=== PATIENT | male | born 1965 | race Caucasian/White ===

== ENCOUNTER 2016-10-04 16:51 | Emergency (ER) | payer OTHER ==
[2016-10-04] MEDS ORDERED: DEXAMETHASONE 10 MG/ML VIAL PO STA (17:08)
[2016-10-04] MEDS ORDERED: IPRATROPIUM/ALBUTEROL 3 ML NEB INH STA (17:08)
[2016-10-04] MEDS ORDERED: DEXAMETHASONE 10 MG/ML VIAL ONE (17:11)
[2016-10-04] MEDS ORDERED: CHERRY SYRUP 10 ML UDC PO ONE (17:11)
[2016-10-04] MEDS ORDERED: IPRATROPIUM/ALBUTEROL 3 ML NEB INH ONE (17:14)
== END 2016-10-04 17:34 | disposition home or self-care (01) ==
DX: H66.001 Acute suppurative otitis media without spontaneous rupture of ear drum, right ear (principal); J06.9 Acute upper respiratory infection, unspecified; F17.200 Nicotine dependence, unspecified, uncomplicated
CPT/HCPCS: 94640; 99283; A9270; J7620

== ENCOUNTER 2018-08-03 16:48 | Emergency (ER) | payer OTHER ==
[2018-08-03] MEDS ORDERED: IPRATROPIUM/ALBUTEROL 3 ML NEB INH STA (18:09)
[2018-08-03] MEDS ORDERED: DEXAMETHASONE 10 MG/ML VIAL PO STA (18:09)
[2018-08-03] MEDS ORDERED: CHERRY SYRUP 10 ML UDC PO ONE (18:18)
[2018-08-03 19:25] VITALS: BP 101/53
--- NOTE | 2018-08-03 19:28 | XRAY Report ---
Reason: cough and dyspnea Procedure Date: 08/03/2018 Accession Number: [id number] / [id number] Procedure: XR - Chest 2 View X-Ray CPT Code: 57442 FULL RESULT: EXAM: CHEST RADIOGRAPHY EXAM DATE: 08/03/2018 07:10 PM. CLINICAL HISTORY: Cough and dyspnea. COMPARISON: CHEST 2 VIEW PA/LAT 07/19/2014 10:03 AM. TECHNIQUE: 2 views. FINDINGS: Lungs/Pleura: Bronchial wall thickening noted. Retrocardiac densities are present. No effusions or pneumothorax. Lungs are hyperinflated. Mediastinum: Stable cardiomediastinal silhouette. Other: None. IMPRESSION: 1. Retrocardiac opacities could represent developing infiltrates. Superimposed bronchial wall thickening most compatible with bronchitis or reactive airways disease. 2. No effusions or pneumothorax. RADIA
--- NOTE | 2018-08-03 19:40 | ED Physician Documentation ---
PD HPI DYSPNEA - Stated complaint Stated Complaint: COUGHING/FEVER - Chief complaint Chief Complaint: Resp - History obtained from History obtained from: Patient - History of Present Illness Timing - onset: How many days ago (4) Timing - duration: Days (4) Timing - details: Still present Worsened by: Coughing Associated symptoms: Fever, Cough - Additional information Additional information: The patient is a 53-year-old male who presents with cough and fever of 4 days' duration. His cough is productive of sputum, and he reports dyspnea and myalgias. He denies chest pain, nausea or vomiting. He denies sore throat. He has taken Tylenol and NyQuil without relief. His has been sick with similar symptoms, and was diagnosed with pneumonia. Review of Systems Constitutional: reports: Fever, Myalgias Eyes: denies: Irritation Ears: denies: Ear pain Nose: denies: Congestion Throat: denies: Sore throat Cardiac: denies: Chest pain / pressure Respiratory: reports: Dyspnea, Cough GI: denies: Abdominal Pain, Nausea, Vomiting : denies: Dysuria Skin: denies: Rash Musculoskeletal: denies: Extremity pain, Extremity swelling Neurologic: reports: Headache (mild) PD PAST MEDICAL HISTORY - Past Medical History Past Medical History: No Cardiovascular: None Respiratory: None Neuro: None Endocrine/Autoimmune: None GI: None : None HEENT: None Psych: None Musculoskeletal: None Derm: None - Past Surgical History Past Surgical History: Yes General: Other - Present Medications Home Medications: Ambulatory Orders Medication Instructions Recorded Confirmed Albuterol Sulf [Ventolin Hfa 1 - 2 puffs INH Q4HR PRN #1 inhaler 08/03/18 Inhaler] Azithromycin [Zithromax] 250 mg PO DAILY #6 tablet 08/03/18 Benzonatate [Tessalon Perle] 100 - 200 mg PO TID PRN #30 capsule 08/03/18 - Allergies Allergies/Adverse Reactions: Allergies Allergy/AdvReac Type Severity Reaction Status Date / Time No Known Drug Allergies Allergy Verified 08/03/18 16:55 - Social History Does the pt smoke?: Yes Smoking Status: Current every day smoker Does the pt drink ETOH?: Yes Does the pt have substance abuse?: No - Immunizations Immunizations are current?: Yes - POLST Patient has POLST: No PD ED PE NORMAL - Vitals Vital signs reviewed: Yes (Diastolic hypertension initially.) - General General: Alert and oriented X 3, Well developed/nourished - HEENT HEENT: Atraumatic, Ears normal, Pharynx benign - Neck Neck: Supple, no meningeal sign, No adenopathy, No JVD - Cardiac Cardiac: RRR, No murmur - Respiratory Respiratory: Other (Diffuse expiratory wheezing.) - Abdomen Abdomen: Soft, Non tender - Back Back: No CVA TTP - Derm Derm: No rash - Extremities Extremities: No edema, No calf tenderness / cord - Neuro Neuro: Alert and oriented X 3, No motor deficit, Normal speech Results - Vitals Vitals: Oxygen O2 Source Room air - Rads (name of study) CXR Radiology: Prelim report reviewed, EMP read contemporaneously, See rad report (1) Retrocardiac opacities could represent developing infiltrates. Superimposed bronchial wall thickening most compatible with bronchitis or reactive airways disease. 2) No effusions or pneumothorax.) PD MEDICAL DECISION MAKING - ED course Complexity details: reviewed results, re-evaluated patient, considered differential, d/w patient, d/w family ED course: The patient's presentation is consistent with retrocardiac pneumonia, which is seen on chest x-ray, which reveals retrocardiac opacities. It also reveals bronchial wall thickening, consistent with bronchitis or early reactive airways disease. Treatment in the emergency department included administration of DuoNeb nebulizer and dexamethasone 10 mg orally. His air movement improved with the above treatment, and he felt subjectively improved. He is being discharged with prescriptions for albuterol inhaler, Zithromax, and Tessalon. I discussed with him and his family the expected course of illness, antibiotic treatment and outpatient follow-up, as well as potentially worrisome signs or symptoms that should prompt reevaluation in the emergency department. Departure - Departure Disposition: 01 Home, Self Care Clinical Impression: Acute asthmatic bronchitis Pneumonia Qualifiers: Pneumonia type: due to unspecified organism Laterality: left Lung location: lower lobe of lung Qualified Code(s): J18.1 - Lobar pneumonia, unspecified organism Condition: Stable Instructions: ED Bronchitis Asthmatic, ED Pneumonia Adult Follow-Up: Betty Hinton MD [Primary Care Provider] - Prescriptions: Albuterol Sulf [Ventolin Hfa Inhaler] 1 - 2 puffs INH Q4HR PRN #1 inhaler PRN Reason: Shortness Of Air/Wheezing Azithromycin [Zithromax] 250 mg PO DAILY #6 tablet Benzonatate [Tessalon Perle] 100 - 200 mg PO TID PRN #30 capsule PRN Reason: Cough Comments: Take Zithromax daily as prescribed. Use albuterol inhaler as prescribed if needed for shortness of breath. You can use Tessalon as prescribed if needed for cough. You can use ibuprofen, up to 800 mg 3 times daily for its anti-inflammatory effect. Follow-up with your primary physician within 1-2 weeks. Call to schedule appointment. Return to the emergency department if you develop increasing difficulty breathing, or otherwise worsening symptoms. Discharge Date/Time: 08/03/18 19:50
== END 2018-08-03 19:50 | disposition home or self-care (01) ==
LOC: ED 16:48
DX: J45.909 Unspecified asthma, uncomplicated (principal); J18.1 Lobar pneumonia, unspecified organism; F17.200 Nicotine dependence, unspecified, uncomplicated
CPT/HCPCS: 71046; 94640; 99283; A9270

== ENCOUNTER 2021-06-01 10:51 | Outpatient (CLI) | payer OTHER ==
[2021-06-01 11:39] VITALS: BP 113/76
--- NOTE | 2021-06-01 11:39 | SLEEP CARE CONSULTATION ---
Information from patient questionnaire entered by Main Castro MA. I have reviewed and concur with the information entered by Main Castro MA. This document represents the service I personally performed and the decisions made by , Chantelle West ARNP. History of Present Illness Service Date and Time: 06/01/2021 1051 Reason for Visit: New patient Chief Complaint: reports: Snoring, Excessive daytime sleepiness, Observed pauses in breathing, Frequent awakenings at night Date of Onset: 13 YEARS Usual bedtime: 1100 PM Time it takes to fall asleep: 30 MINUTES Snores at night: Yes Observed to quit breathing while asleep: Yes Sleeps alone due to snoring: No Number of times waking at night: 3 Reasons for waking at night: reports: Snoring, Pain, Bathroom Toss, Turn, or Twitch while sleeping: Yes Recalls having dreams: Yes (sometimes) Usually gets out of bed at: 0730 Feels refreshed in the morning: Yes Morning headache: No Sleepy or fatigued during the day: Yes Ever fallen asleep while driving: No (only long distance) Takes day naps: No Dreams during day naps: No Prior sleep studies: No Year and Where: January 2021 with the [place] Type of Sleep Study: Home sleep study Additional HPI information: I had the pleasure of seeing YANA COHEN today regarding the possibility of him having a sleep disorder. His current complaints are excessive daytime sleepiness, observed pauses in breathing, frequent night awakenings and snoring. He had a HST with the [place] in January 2021. He was told he needed to have a PSG because of low oxygen saturations. His has told him his snoring is loud and that he stops breathing when he is sleeping. He wakes up feeling rested but he gets really tired and sleepy during the day. He denies drowsy driving. He denies morning headaches. 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 Patient is and lives in [place]. Have you smoked in the past 12 months: Yes (trying to quit) Cigarettes per day (20/pack): 20 Years of smokin Smoking Pack Years: 42.0 Alcohol use: Yes Alcohol amount and frequency: 1 -2 OCCASSIONALY Caffeine use: Yes Caffeine amount and frequency: 2 X DAILY Family History Family history of sleep disordered breathing: No Allergies and Home Medications Known drug allergies: No Drug allergies reviewed: Yes (NKDA) Home medication list reviewed: Yes (Wellbutrin for stopping smoking; flonase, cetirizine) Review of Systems Cardiovascular: reports: chest pain Respiratory: reports: shortness of breath, wheeze, sputum production, chronic cough Urinary: reports: frequency Neurological: reports: head trauma (kicked in head by horse when 7 yrs old) Ear/Nose/Throat: reports: nasal congestion, sinus problems, wisdom teeth removed. denies: injury to nose, tonsillectomy Endocrine: reports: sluggishness Musculoskeletal: reports: back pain Immunologic: reports: sneezing, itching. denies: allergies to food or environment Physical Exam Vital signs obtained and entered by: Shiraz CASTRO CMA AAHETAL Blood Pressure: 113/76 (left) Cuff size: wrist Heart Rate: 86 O2 Saturation: 96 (with mask,) Height: 6 ft 2 in Weight: 231 lb (per PT info with clothes) Weight change since last visit: Pt quiting smoking Novemmber 19, down to 1 - 2 cig per day. Body Mass Index: 29.6 BMI Classification: Overweight Neck circumference: 17 (inches) Mouth and throat: narrow oropharynx Soft palate: normal Hard palate: normal Uvula: normal Uvula visualization: 50% Mallampati Class II Tongue: normal in size Tonsils: small Neck: normal w/o lymphadenopathy or thyromegaly Heart: regular rate and rhythm Lungs: clear bilaterally Impression and Plan 1. Suspected Obstructive Sleep Apnea-Hypopnea Syndrome, as suggested by a history of loud and irregular snoring, observed cessation of breath while asleep, frequent awakening during the night, and excessive daytime sleepiness. Narrow oropharynx and obesity are common predisposing factors for obstructive sleep apnea-hypopnea syndrome. I recommend proceeding to polysomnography to confirm the diagnosis and to assess severity. If the patient has significant sleep disordered breathing, a manual CPAP titration study will also be performed to find the optimal treatment pressure. I informed the patient of what the sleep studies involve and after some discussion, obtained agreement to proceed. The pathophysiology of obstructive sleep apnea-hypopnea syndrome was discussed with the patient and health risks of cardiovascular and cerebrovascular disease if not treated. Risks of drowsy driving discussed in detail and patient advised to avoid long distance driving and to puller out at the first sign of drowsiness. Patient agreed to plan. * Schedule polysomnography. * Avoid long distance driving or driving when feeling sleepy. * Avoid alcohol, sedative and muscle relaxant around bedtime. * Attempt to lose weight. * Review instructions provided by trained office staff on how to prepare for the sleep study. * Return for follow-up after sleep study completed. Counseling Topics: Weight loss health impact Visit Type: In Office Time Spent with Patient (minutes): 25 Provider Statement: I spent 100% of the Face to Face Visit with the patient with greater than 50% spent counseling the patient and coordination of care.
== END 2021-06-01 10:52 | disposition home or self-care (01) ==
LOC: SC 10:51
PROVIDERS: ATTEND Nurse Practitioner Family
DX: R06.83 Snoring (principal); R06.81 Apnea, not elsewhere classified; G47.8 Other sleep disorders; E66.3 Overweight; Z68.29 Body mass index [BMI] 29.0-29.9, adult
CPT/HCPCS: 99202; 99212

== ENCOUNTER 2021-07-06 20:49 | Outpatient (CLI) | payer OTHER | END 2021-07-06 20:50 | disposition home or self-care (01) | LOC: SC 20:49 | PROVIDERS: ATTEND Nurse Practitioner Family | DX: R09.02 Hypoxemia (principal) | CPT/HCPCS: 95810 ==

== ENCOUNTER 2021-10-22 13:11 | Emergency (ER) | payer OTHER ==
[2021-10-22] MEDS ORDERED: IPRATROPIUM/ALBUTEROL 3 ML NEB INH STA (13:31)
--- NOTE | 2021-10-22 13:34 | ED Physician Documentation ---
PD HPI URI - Stated complaint Stated Complaint: CONGESTION/SOA - Chief complaint Chief Complaint: Resp - History obtained from History obtained from: Patient - Additional information Additional information: tested positive for COVID a few days ago. He got sick the day before yesterday with congestion, productive cough, shortness of breath and fevers. He is taken a few home test for COVID and they were all negative. He has a longstanding history of tobacco abuse, almost in remission. Only occasionally smokes now. No defined history of COPD or emphysema. Review of Systems Ten Systems: 10 systems reviewed and negative Constitutional: reports: Fever, Chills Nose: reports: Rhinorrhea / runny nose Throat: reports: Sore throat Cardiac: denies: Chest pain / pressure, Palpitations Respiratory: reports: Dyspnea, Cough PD PAST MEDICAL HISTORY - Past Medical History Cardiovascular: None Respiratory: None Neuro: None Endocrine/Autoimmune: None GI: None : None HEENT: None Psych: None Musculoskeletal: None Derm: None - Past Surgical History Past Surgical History: Yes General: Other - Present Medications Home Medications: Ambulatory Orders Medication Instructions Recorded Confirmed Albuterol Sulf [Ventolin Hfa 1 - 2 puffs INH Q4HR PRN #1 inhaler 08/03/18 Inhaler] Albuterol Sulf [Ventolin Hfa 1 - 2 puffs INH Q4HR PRN #1 inhaler 10/22/21 Inhaler] guaiFENesin/CODEINE [Robitussin AC] 5 - 10 ml PO Q6H PRN #120 ml 10/22/21 predniSONE [Deltasone] 20 mg PO [id number] #21 tab 10/22/21 - Allergies Allergies/Adverse Reactions: Allergies Allergy/AdvReac Type Severity Reaction Status Date / Time No Known Drug Allergies Allergy Verified 08/03/18 16:55 - Social History Does the pt smoke?: Yes Smoking Status: Current every day smoker Does the pt drink ETOH?: Yes Does the pt have substance abuse?: No - Immunizations Immunizations are current?: Yes - POLST Patient has POLST: No PD ED PE NORMAL - Vitals Vital signs reviewed: Yes - General General: Alert and oriented X 3, No acute distress, Other (He is not as tachypneic for me on my exam as the triage vitals would suggest.) - HEENT HEENT: PERRL, EOMI - Neck Neck: Supple, no meningeal sign, No bony TTP - Cardiac Cardiac: RRR, No murmur - Respiratory Respiratory: Other (Wheezy throughout with moderate air motion) - Abdomen Abdomen: Non tender - Back Back: No CVA TTP, No spinal TTP - Derm Derm: Normal color, Warm and dry - Extremities Extremities: No edema, No calf tenderness / cord - Neuro Neuro: Alert and oriented X 3, Normal speech Results - Vitals Vitals: Vital Signs - 24 hr 10/22/21 10/22/21 10/22/21 13:18 13:45 13:51 Temperature 37.7 C Heart Rate 110 H 120 H 104 H Respiratory 30 H 22 22 Rate Blood Pressure 160/97 H 141/103 H O2 Saturation 93 97 10/22/21 14:20 Temperature Heart Rate 105 H Respiratory 26 H Rate Blood Pressure 149/93 H O2 Saturation 92 Oxygen O2 Source Room air - EKG (time done) 1335 Rate: Rate (enter#) (115) Rhythm: Sinus tachycardia [place]: RAD Intervals: Normal [place] QRS: Low voltage Ischemia: Normal ST segments - Labs Labs: Laboratory Tests 10/22/21 10/22/21 10/22/21 13:30 13:30 13:30 WBC 8.0 RBC 5.32 Hgb 16.4 Hct 49.2 MCV 92.5 MCH 30.8 MCHC 33.3 RDW 12.9 Plt Count 219 MPV 9.6 Neut # (Auto) 6.5 Lymph # (Auto) 0.7 L Tift # (Auto) 0.7 Eos # (Auto) 0.0 Baso # (Auto) 0.1 Absolute Nucleated RBC 0.00 Nucleated RBC % 0.0 D-Dimer Sodium 135 Potassium 4.1 Chloride 99 L Carbon Dioxide 25 Anion Gap 11.0 BUN 13 Creatinine 1.3 H Estimated GFR (MDRD) 58 L Glucose 110 H Lactic Acid Calcium 8.8 Total Bilirubin 0.7 AST 20 ALT 33 Alkaline Phosphatase 107 B-Natriuretic Peptide 15 Total Protein 7.8 Albumin 4.4 Globulin 3.4 Albumin/Globulin Ratio 1.3 Procalcitonin Nasal Adenovirus (PCR) Nasal B. parapertussis DNA (PCR) Nasal Coronavir 229E PCR Nasal Coronavir HKU1 PCR Nasal Coronavir NL63 PCR Nasal Coronavir OC43 PCR Nasal Enterovir/Rhinovir PCR Nasal Influenza B PCR Nasal Influenza A PCR Nasal Parainfluen 1 PCR Nasal Parainfluen 2 PCR Nasal Parainfluen 3 PCR Nasal Parainfluen 4 PCR Nasal RSV (PCR) Nasal B.pertussis DNA PCR Nasal C.pneumoniae (PCR) Earnest Human Metapneumo PCR Nasal M.pneumoniae (PCR) Nasal SARS-CoV-2 (PCR) 10/22/21 10/22/21 10/22/21 13:30 13:30 13:30 WBC RBC Hgb Hct MCV MCH MCHC RDW Plt Count MPV Neut # (Auto) Lymph # (Auto) Tift # (Auto) Eos # (Auto) Baso # (Auto) Absolute Nucleated RBC Nucleated RBC % D-Dimer Sodium Potassium Chloride Carbon Dioxide Anion Gap BUN Creatinine Estimated GFR (MDRD) Glucose Lactic Acid 0.5 Calcium Total Bilirubin AST ALT Alkaline Phosphatase B-Natriuretic Peptide Total Protein Albumin Globulin Albumin/Globulin Ratio Procalcitonin 0.10 Nasal Adenovirus (PCR) NOT DETECTED Nasal B. parapertussis DNA (PCR) NOT DETECTED Nasal Coronavir 229E PCR NOT DETECTED Nasal Coronavir HKU1 PCR NOT DETECTED Nasal Coronavir NL63 PCR NOT DETECTED Nasal Coronavir OC43 PCR NOT DETECTED Nasal Enterovir/Rhinovir PCR NOT DETECTED Nasal Influenza B PCR NOT DETECTED Nasal Influenza A PCR NOT DETECTED Nasal Parainfluen 1 PCR NOT DETECTED Nasal Parainfluen 2 PCR NOT DETECTED Nasal Parainfluen 3 PCR NOT DETECTED Nasal Parainfluen 4 PCR NOT DETECTED Nasal RSV (PCR) NOT DETECTED Nasal B.pertussis DNA PCR NOT DETECTED Nasal C.pneumoniae (PCR) NOT DETECTED Earnest Human Metapneumo PCR DETECTED A Nasal M.pneumoniae (PCR) NOT DETECTED Nasal SARS-CoV-2 (PCR) NOT DETECTED 10/22/21 14:00 WBC RBC Hgb Hct MCV MCH MCHC RDW Plt Count MPV Neut # (Auto) Lymph # (Auto) Tift # (Auto) Eos # (Auto) Baso # (Auto) Absolute Nucleated RBC Nucleated RBC % D-Dimer < 200.0 L Sodium Potassium Chloride Carbon Dioxide Anion Gap BUN Creatinine Estimated GFR (MDRD) Glucose Lactic Acid Calcium Total Bilirubin AST ALT Alkaline Phosphatase B-Natriuretic Peptide Total Protein Albumin Globulin Albumin/Globulin Ratio Procalcitonin Nasal Adenovirus (PCR) Nasal B. parapertussis DNA (PCR) Nasal Coronavir 229E PCR Nasal Coronavir HKU1 PCR Nasal Coronavir NL63 PCR Nasal Coronavir OC43 PCR Nasal Enterovir/Rhinovir PCR Nasal Influenza B PCR Nasal Influenza A PCR Nasal Parainfluen 1 PCR Nasal Parainfluen 2 PCR Nasal Parainfluen 3 PCR Nasal Parainfluen 4 PCR Nasal RSV (PCR) Nasal B.pertussis DNA PCR Nasal C.pneumoniae (PCR) Earnest Human Metapneumo PCR Nasal M.pneumoniae (PCR) Nasal SARS-CoV-2 (PCR) - Rads (name of study) Single view chest x-ray is unremarkable Radiology: EMP read contemporaneously PD MEDICAL DECISION MAKING - ED course ED course: 56-year-old gentleman who is a longstanding smoker but without specific diagnosis of COPD presents with a wheezy viral illness. After the administration of a DuoNeb he felt much better. Requested discharge. Work-up here demonstrates normal lab work with normal procalcitonin and a bio fire test negative for COVID but positive for human metapneumovirus which is likely causative. His chest x-ray is normal. Departure - Departure Disposition: 01 Home, Self Care Clinical Impression: Acute asthmatic bronchitis, Infection due to human metapneumovirus (hMPV) Condition: Good Record reviewed to determine appropriate education?: Yes Instructions: ED Bronchitis Asthmatic Prescriptions: Albuterol Sulf [Ventolin Hfa Inhaler] 1 - 2 puffs INH Q4HR PRN #1 inhaler PRN Reason: Shortness Of Air/Wheezing predniSONE [Deltasone] 20 mg PO [id number] #21 tab guaiFENesin/CODEINE [Robitussin AC] 5 - 10 ml PO Q6H PRN #120 ml PRN Reason: Cough Comments: You are found today to have a wheezy bronchitis related to human metapneumovirus. Since it is a virus you will not benefit from antibiotics. I did send a prescription for an inhaler, a steroid taper, and some codeine to [facility] in [place]. Return if worsening. Follow-up with your doctor on Monday or Monday for recheck.
[2021-10-22 13:43] LABS: BASOPHILS # (AUTO) 0.1 10^3/uL (0.0-0.1); BASOPHILS % (AUTO) 0.7 %; EOSINOPHILS % (AUTO) 0.1 %; HCT - HEMATOCRIT 49.2 % (42.0-52.0); HGB - HEMOGLOBIN 16.4 g/dL (14.0-18.0); LYMPHOCYTES # (AUTO) 0.7 10^3/uL (1.5-3.5); LYMPHOCYTES % (AUTO) 8.5 %; MEAN CORPUSCULAR HEMOGLOBIN 30.8 pg (27.0-31.0); MEAN CORPUSCULAR HGB CONC 33.3 g/dL (32.0-36.0); MEAN CORPUSCULAR VOLUME 92.5 fL (80.0-94.0); MEAN PLATELET VOLUME 9.6 fL (7.4-11.4); MONOCYTES # (AUTO) 0.7 10^3/uL (0.0-1.0); NEUTROPHILS # (AUTO) 6.5 10^3/uL (1.5-6.6); NEUTROPHILS % (AUTO) 81.3 %; PLT - PLATELET COUNT 219 10^3/uL (130-450); RED BLOOD COUNT 5.32 10^6/uL (4.70-6.10); RED CELL DISTRIBUTION WIDTH 12.9 % (12.0-15.0)
[2021-10-22 13:55] LABS: ALBUMIN 4.4 g/dL (3.2-5.5); ALBUMIN/GLOBULIN RATIO 1.3 (1.0-2.2); BILIRUBIN,TOTAL 0.7 mg/dL (0.2-1.0); CALCIUM 8.8 mg/dL (8.5-10.3); CREATININE 1.3 mg/dL (0.6-1.2); POTASSIUM 4.1 mmol/L (3.5-5.0); TOTAL PROTEIN 7.8 g/dL (6.7-8.2)
--- NOTE | 2021-10-22 14:02 | XRAY Report ---
PROCEDURE: Chest 1 View X-Ray INDICATIONS: dyspnea TECHNIQUE: One view of the chest was acquired. COMPARISON: Chest x-ray 08/03/2018 FINDINGS: Surgical changes and devices: None. Lungs and pleura: No pleural effusions or pneumothorax. Lungs are clear. Mediastinum: Mediastinal contours appear normal. Heart size is enlarged. Bones and chest wall: No suspicious bony lesions. Overlying soft tissues appear unremarkable. IMPRESSION: No acute pulmonary process. Reviewed by: Alexus George MD on 10/22/2021 1:01 PM [facility] Approved by: Alexus George MD on 10/22/2021 1:01 PM [facility] Station ID: [id number]
[2021-10-22 14:53] LABS: B. PARAPERTUSSIS- RESP PCR PAN NOT DETECTED; B. PERTUSSIS- RESP PCR PANEL NOT DETECTED; C. PNEUMONIAE- RESP PCR PANEL NOT DETECTED; CORONAVIRUS 229E-RESP PCR NOT DETECTED; CORONAVIRUS HKU1-RESP PCR NOT DETECTED; CORONAVIRUS NL63-RESP PCR NOT DETECTED; CORONAVIRUS OC43-RESP PCR NOT DETECTED; HUMAN METAPNEUMOVIRUS DETECTED; INFLUENZA A- RESP PCR PANEL NOT DETECTED; INFLUENZA B - RESP PCR PANEL NOT DETECTED; M. PNEUMONIAE- RESP PCR PANEL NOT DETECTED; PARAINFLUENZA VIRUS 1 NOT DETECTED; PARAINFLUENZA VIRUS 2 NOT DETECTED; PARAINFLUENZA VIRUS 3 NOT DETECTED; PARAINFLUENZA VIRUS 4 NOT DETECTED; RHINOVIRUS/ENTEROVIRUS NOT DETECTED; RSV- RESP PCR PANEL NOT DETECTED; SARS-CoV-2 -RESP PCR PANEL NOT DETECTED
[2021-10-22 15:21] VITALS: BP 145/92
== END 2021-10-22 15:21 | disposition home or self-care (01) ==
LOC: ED 13:11
DX: J45.909 Unspecified asthma, uncomplicated (principal); B97.81 Human metapneumovirus as the cause of diseases classified elsewhere; F17.200 Nicotine dependence, unspecified, uncomplicated; Z20.822 Contact with and (suspected) exposure to COVID-19
CPT/HCPCS: 36415; 80053; 83605; 83880; 84145; 85025; 85379; 87040; 87633; 93005; 94640; 99283; 99284

== ENCOUNTER 2023-05-08 11:45 | Emergency (ER) | payer OTHER ==
--- NOTE | 2023-05-08 13:34 | ED Physician Documentation ---
PD HPI DYSPNEA - Stated complaint Stated Complaint: SOA,CONGESTION - Chief complaint Chief Complaint: Resp - History obtained from History obtained from: Patient - History of Present Illness Timing - onset: How many days ago (5) Timing - onset during: Rest Timing - duration: Days (5) Timing - details: Gradual onset, Still present Inciting event(s): URI Improved by: Inhaler/neb Worsened by: Exertion, Coughing Associated symptoms: Cough, Wheezing Similar symptoms before: Diagnosis (COPD) Recently seen: Not recently seen - Additional information Additional information: 58-year-old Carlos Durbin has a history of COPD he uses Occdaterol/tiotrop daily and his albuteral inhaler. He has developed a cough and worsening shortness of breath. He is coughing up yellow and green phlem. Review of Systems Constitutional: reports: Myalgias. denies: Fever Eyes: denies: Decreased vision Ears: denies: Loss of hearing, Ear pain Nose: reports: Rhinorrhea / runny nose, Congestion, Sinus pressure / pain Throat: reports: Sore throat Cardiac: denies: Chest pain / pressure, Palpitations Respiratory: reports: Dyspnea, Cough, Wheezing GI: denies: Abdominal Pain, Nausea, Vomiting, Constipation, Diarrhea : denies: Dysuria, Frequency Skin: denies: Rash Musculoskeletal: denies: Neck pain, Back pain, Extremity pain Neurologic: denies: Generalized weakness, Focal weakness, Numbness PD PAST MEDICAL HISTORY - Past Medical History Past Medical History: Yes Cardiovascular: None Respiratory: COPD Neuro: None Endocrine/Autoimmune: None GI: None : None HEENT: None Psych: None Musculoskeletal: None Derm: None - Past Surgical History Past Surgical History: Yes General: Other - Present Medications Home Medications: Ambulatory Orders Medication Instructions Recorded Confirmed Albuterol Sulf [Ventolin Hfa 1 - 2 puffs INH Q4HR PRN #1 inhaler 10/22/21 05/08/23 Inhaler] Amox/Clav 875/125 [Augmentin] 1 each PO Q12H #20 tablet 05/08/23 predniSONE [Deltasone] 40 mg PO DAILY 5 Days #10 tablet 05/08/23 - Allergies Allergies/Adverse Reactions: Allergies Allergy/AdvReac Type Severity Reaction Status Date / Time No Known Drug Allergies Allergy Verified 05/08/23 11:55 - Social History Does the pt smoke?: Yes Smoking Status: Current every day smoker Does the pt drink ETOH?: Yes Does the pt have substance abuse?: No - Immunizations Immunizations are current?: Yes Immunizations: TDAP >10years/unknown - POLST Patient has POLST: No PD ED PE NORMAL - Vitals Vital signs reviewed: Yes (hypertensive ) - General General: Alert and oriented X 3, No acute distress, Well developed/nourished - HEENT HEENT: Atraumatic, PERRL, EOMI, Other (minimal inflammation to the right TM the left is erythematous in the attic with distortion of the landmarks. ) - Neck Neck: Supple, no meningeal sign, No bony TTP - Cardiac Cardiac: RRR, No murmur - Respiratory Respiratory: No respiratory distress, Other (diminished air sounds and scattered wheezes. ) - Abdomen Abdomen: Soft, Non tender - Back Back: No CVA TTP, No spinal TTP - Derm Derm: Normal color, Warm and dry, No rash - Extremities Extremities: No deformity, No edema - Neuro Neuro: Alert and oriented X 3, [employer]ion[employer] 2-12 intact, No motor deficit, No sensory deficit, Normal speech Eye Opening: Spontaneous Motor: Obeys Commands Verbal: Oriented GCS Score: 15 - Psych Psych: Normal mood, Normal affect Results - Vitals Vitals: Vital Signs - 24 hr 05/08/23 05/08/23 11:53 15:16 Temperature 36.4 C L Heart Rate 86 77 Respiratory 16 16 Rate Blood Pressure 152/90 H 124/92 H O2 Saturation 96 94 Oxygen O2 Source Room air - Rads (name of study) CHEST Relevant Findings:: Prelim report reviewed (Impression: No acute cardiopulmonary process.), EMP independent interpretation of test PD Medical Decision Making - ED course Complexity details: reviewed results, re-evaluated patient, considered differential, d/w patient ED course: 58-year-old male with exacerbation of COPD and evidence of ENT infection is given a dose of dexamethasone here in the emergency department. He is not interested in getting a breathing treatment. We have placed him on a course of Augmentin and prednisone. Departure - Departure Disposition: 01 Home, Self Care Clinical Impression: Acute asthmatic bronchitis Otitis media Qualifiers: Otitis media type: suppurative Chronicity: acute Laterality: left Recurrence: not specified as recurrent Spontaneous tympanic membrane rupture: without spontaneous rupture Qualified Code(s): H66.002 - Acute suppurative otitis media without spontaneous rupture of ear drum, left ear Condition: Stable Instructions: ED Bronchitis Asthmatic, ED Otitis Media Acute Adult Follow-Up: VALERIANO Thomas [Provider Group] Prescriptions: Amox/Clav 875/125 [Augmentin] 1 each PO Q12H #20 tablet predniSONE [Deltasone] 40 mg PO DAILY 5 Days #10 tablet Comments: Carlos, today it looks like you have a middle ear infection leading to worsening of your COPD. I have E scribed some antibiotic and prednisone to the [facility] in [place]. Our expectations with treatment is improvement over the next several days and resolution. Discharge Date/Time: 05/08/23 15:22
[2023-05-08] MEDS ORDERED: DEXAMETHASONE 10 MG/ML VIAL PO STA (13:37)
[2023-05-08] MEDS ORDERED: CHERRY SYRUP 10 ML UDC PO ONE (13:37)
--- NOTE | 2023-05-08 14:23 | XRAY Report ---
PROCEDURE: Chest 1 View X-Ray INDICATIONS: soa TECHNIQUE: One view of the chest was acquired. COMPARISON: 10/22/2021. FINDINGS: Surgical changes and devices: None. Lungs and pleura: No pleural effusions or pneumothorax. Lungs are clear. Mediastinum: Mediastinal contours appear normal. Heart size is normal. Bones and chest wall: No suspicious bony lesions. Overlying soft tissues appear unremarkable. IMPRESSION: No acute cardiopulmonary process. Reviewed by: Valeriano Hurtado MD on 05/08/2023 2:22 PM PST Approved by: Valeriano Hurtado MD on 05/08/2023 2:22 PM PST Station ID: [id number]
[2023-05-08 15:19] VITALS: BP 124/92; O2SAT 94
== END 2023-05-08 15:22 | disposition home or self-care (01) ==
LOC: ED 11:45
DX: J44.89 Other specified chronic obstructive pulmonary disease (principal); H66.002 Acute suppurative otitis media without spontaneous rupture of ear drum, left ear; F17.200 Nicotine dependence, unspecified, uncomplicated; Z79.899 Other long term (current) drug therapy
CPT/HCPCS: 71045; 99283; 99284; A9270

== ENCOUNTER 2023-07-24 05:31 | Emergency (ER) | payer OTHER ==
[2023-07-24 05:47] VITALS: O2SAT 95
--- NOTE | 2023-07-24 06:14 | ED Physician Documentation ---
History of Present Illness - Stated complaint Stated Complaint: CHEST PX/SORE THROAT - Chief complaint Chief Complaint: Resp - History obtained from History obtained from: Patient - Additonal information Additional information: Patient comes to the emergency department chief complaint of cough productive of green sputum, sore throat, chest tightness, and congestion. The patient states symptoms started about a week ago and that he has been noticing his cough worsening since. He states that he has a history of COPD and still smokes a little bit, although he is down quite a bit from his pack a day that he used to smoke. The patient states that he has not had any fevers or GI symptoms. He does note that it feels like an is sitting on his chest. No other complaints at this time. He has been using his inhaler [id number]. PD PAST MEDICAL HISTORY - Past Medical History Past Medical History: Yes Cardiovascular: None Respiratory: COPD Neuro: None Endocrine/Autoimmune: None GI: None : None HEENT: None Psych: None Musculoskeletal: None Derm: None - Past Surgical History Past Surgical History: Yes General: Other - Present Medications Home Medications: Ambulatory Orders Medication Instructions Recorded Confirmed Albuterol Sulf [Ventolin Hfa 1 - 2 puffs INH Q4HR PRN #1 inhaler 10/22/21 07/24/23 Inhaler] Amox/Clav 875/125 [Augmentin] 1 each PO Q12H #20 tablet 05/08/23 predniSONE [Deltasone] 40 mg PO DAILY 5 Days #10 tablet 05/08/23 Azithromycin [Zithromax] 0 mg PO DAILY #6 tablet 07/24/23 predniSONE [Deltasone] 10 mg PO [id number] #42 tab 07/24/23 - Allergies Allergies/Adverse Reactions: Allergies Allergy/AdvReac Type Severity Reaction Status Date / Time No Known Drug Allergies Allergy Verified 07/24/23 05:42 - Social History Does the pt smoke?: Yes Smoking Status: Current every day smoker Does the pt drink ETOH?: Yes Does the pt have substance abuse?: No - Immunizations Immunizations are current?: Yes Immunizations: TDAP >10years/unknown - POLST Patient has POLST: No PD ED PE NORMAL - Vitals Vital signs reviewed: Yes - General General: Alert and oriented X 3, No acute distress, Well developed/nourished - HEENT HEENT: Atraumatic, EOMI, Moist mucous membranes, Pharynx benign - Neck Neck: Supple, no meningeal sign - Cardiac Cardiac: RRR, No murmur - Respiratory Respiratory: No respiratory distress, Other (Mild expiratory wheezes bilaterally, no prolonged expiratory phase.) - Abdomen Abdomen: Soft, Non tender, Non distended - Derm Derm: Normal color, Warm and dry, No rash - Extremities Extremities: No deformity, No edema - Neuro Neuro: Alert and oriented X 3, Other (Grossly intact) - Psych Psych: Normal mood, Normal affect Results - Vitals Vitals: Vital Signs - 24 hr 07/24/23 07/24/23 05:39 06:20 Temperature 36.8 C Heart Rate 96 90 Respiratory 17 20 Rate Blood Pressure 135/79 H O2 Saturation 95 Oxygen O2 Source Room air - Rads (name of study) Chest x-ray two-view Relevant Findings:: Final report received, See rad report (Negative) PD Medical Decision Making - ED course Complexity details: reviewed results, re-evaluated patient, considered differential, d/w patient ED course: The patient was worked up with a respiratory PCR panel, which is pending at this time, and a chest x-ray, which was negative. He was given a DuoNeb and pr ednisone. I did feel that given his COPD and smoking status with the worsening productive cough with thick green sputum, that he most likely is developing bronchitis as he is at risk for this. As such he was started on Zithromax. Departure - Departure Disposition: 01 Home, Self Care Clinical Impression: Viral URI, Bronchitis, Mild chronic obstructive pulmonary disease Condition: Stable Instructions: COPD Dc, ED Upper Resp Infec Abx Tx Prescriptions: predniSONE [Deltasone] 10 mg PO [id number] #42 tab Azithromycin [Zithromax] 0 mg PO DAILY #6 tablet Comments: Your chest x-ray looks great and the viral panel is pending at this time. You have been treated with a nebulizer treatment, steroid, and a dose of antibiotics here in the emergency department. Your illness is most likely viral in nature, but given your COPD and the presence of some smoking still, you are at increased risk for acquiring a bacterial infection on top of the viral infection that you already have. Your sputum production could be either viral or bacterial in nature, but given your risk factors, we have started the antibiotic, rather than waiting as we normally would. The remainder of your course, plus a prescription for the prednisone, has been electronically transmitted to the [facility] pharmacy in [place], your pharmacy of choice on record. Please pick this up today and take your next doses of medication tomorrow. You may continue to use your inhaler as needed. Forms: PCP List
[2023-07-24] MEDS: IPRATROPIUM/ALBUTEROL 3 ML NEB INH STA (06:20)
[2023-07-24] MEDS: predniSONE 20 MG TABLET PO STA (06:30)
[2023-07-24] MEDS: AZITHROMYCIN 250 MG TABLET PO STA (06:30)
[2023-07-24 07:00] VITALS: BP 142/81
[2023-07-24 07:00] LABS: B. PARAPERTUSSIS- RESP PCR PAN NOT DETECTED; B. PERTUSSIS- RESP PCR PANEL NOT DETECTED; C. PNEUMONIAE- RESP PCR PANEL NOT DETECTED; CORONAVIRUS 229E-RESP PCR NOT DETECTED; CORONAVIRUS HKU1-RESP PCR NOT DETECTED; CORONAVIRUS NL63-RESP PCR NOT DETECTED; CORONAVIRUS OC43-RESP PCR NOT DETECTED; HUMAN METAPNEUMOVIRUS NOT DETECTED; INFLUENZA A- RESP PCR PANEL NOT DETECTED; INFLUENZA B - RESP PCR PANEL NOT DETECTED; M. PNEUMONIAE- RESP PCR PANEL NOT DETECTED; PARAINFLUENZA VIRUS 1 NOT DETECTED; PARAINFLUENZA VIRUS 2 NOT DETECTED; PARAINFLUENZA VIRUS 3 NOT DETECTED; PARAINFLUENZA VIRUS 4 NOT DETECTED; RHINOVIRUS/ENTEROVIRUS NOT DETECTED; RSV- RESP PCR PANEL NOT DETECTED; SARS-CoV-2 -RESP PCR PANEL NOT DETECTED
--- NOTE | 2023-07-24 07:35 | XRAY Report ---
PROCEDURE: Chest 2V INDICATIONS: Cough TECHNIQUE: 2 views of the chest were acquired. COMPARISON: 05/08/2023. FINDINGS: Surgical changes and devices: None. Lungs and pleura: No pleural effusions or pneumothorax. Lungs are clear. Mediastinum: Mediastinal contours appear normal. Heart size is normal. Bones and chest wall: No suspicious bony lesions. Overlying soft tissues appear unremarkable. IMPRESSION: No acute cardiopulmonary process. Findings are concordant with preliminary interpretation provided by [facility]. Reviewed by: Dennys Rico MD on 07/24/2023 7:34 AM PST Approved by: Dennys Rico MD on 07/24/2023 7:34 AM PST Station ID: [id number]
== END 2023-07-24 06:59 | disposition home or self-care (01) ==
LOC: ED 05:31
DX: J06.9 Acute upper respiratory infection, unspecified (principal); J40 Bronchitis, not specified as acute or chronic; J44.9 Chronic obstructive pulmonary disease, unspecified; F17.200 Nicotine dependence, unspecified, uncomplicated; Z11.52 Encounter for screening for COVID-19
CPT/HCPCS: 71046; 87633; 94640; 94664; 99284; A9270; J7512